=== PATIENT | female | born 1940 | race Caucasian/White ===

== ENCOUNTER 2019-03-19 14:10 | Emergency (ER) | payer MEDICARE, OTHER ==
[~2019-03-19] VITALS: Ht 157.5 cm; Wt 59.0 kg
[2019-03-19 16:07] LABS: ABSOLUTE BASOPHILS 0.1 thou/uL (0.0-0.2); ABSOLUTE LYMPHOCYTES 1.1 thou/uL (0.8-5.3); ABSOLUTE MONOCYTES 0.9 thou/uL (0.0-1.2); ABSOLUTE NEUTROPHILS 5.7 thou/uL (1.6-8.1); BASOPHILS 0.7 %; EOSINOPHILS 0.1 %; HEMATOCRIT 36.7 % (37.0-47.0); HEMOGLOBIN 12.2 gm/dL (12.0-15.0); LYMPHOCYTES 14.7 %; MCH 33.2 pg (26.0-34.0); MCHC 33.3 g/dL (28.0-37.0); MCV 99.6 fL (80.0-100.0); MONOCYTES 11.5 %; MPV 8.9 fl. (7.2-11.1); NUCLEATED RBCS 0 /100WBC; PLATELET COUNT* 141 thou/uL (150-400); RBC 3.68 mil/uL (4.20-5.00); RDW-CV 14.2 % (10.5-14.5); WBC 7.8 thou/uL (4.0-11.0)
[2019-03-19 16:12] LABS: ANION GAP 10 mmol/L (7-16); BUN 23 mg/dL (7-18); CALCIUM 9.4 mg/dL (8.5-10.1); CHLORIDE 99 mmol/L (98-107); CO2 28 mmol/L (21-32); CREATININE 1.3 mg/dL (0.6-1.3); GLUCOSE 115 mg/dL (70-99); POTASSIUM 4.8 mmol/L (3.5-5.1); SODIUM 137 mmol/L (136-145)
[2019-03-19 16:14] LABS: PROTIME 10.1 Seconds (9.20-11.50)
[2019-03-19 16:26] LABS: ALBUMIN 3.6 g/dL (3.4-5.0); ALKALINE PHOSPHATASE 50 U/L (46-116); LIPASE 69 U/L (73-393); NT-PRO BRAIN NAT PEPTIDE 660 pg/mL (<300); SGOT 25 U/L (15-37); SGPT 52 U/L (30-65); TOTAL BILIRUBIN 0.7 mg/dL (<0.1-1.0); TOTAL PROTEIN 7.7 g/dL (6.4-8.2); TROPONIN-I LEVEL <0.06 ng/mL (<0.06)
[2019-03-19] MEDS ORDERED: CARAFATE 1 GM TA1 GM PO (17:37)
[2019-03-19 17:58] VITALS: BP 134/83
--- NOTE | 2019-03-21 12:24 | EKG ---
[place] [address] ELECTROCARDIOGRAM REPORT Name: ABIMAEL SCHMIDT [facility] [id number] Admission: 03/19/19 Attend Phys: Discharge: 03/19/19 Date of : 44 Report #: [id number] THIS REPORT FOR: //name// [facility] ED Test Date: 2019-03-19 Test Time: 14:16:12 Pat Name: ABIMAEL SCHMIDT Department: Room: Gender: F [employer]: [facility] : 1940 Requested By: Kassie Donohue Order Number: [id number] MD: Darien Duran Measurements Intervals [place] Rate: 82 P: 39 VA: 119 QRS: 6 QRSD: 98 T: 51 QT: 374 QTc: 437 Interpretive Statements Sinus rhythm Borderline short VA interval Anterior infarct, old No previous ECG available for comparison Electronically Signed On 03-21-2019 12:24:47 CDT by Darien Duran [email or web address] <ELECTRONICALLY SIGNED> By: Darien Duran MD, [facility] 03/21/19 1224 1416 1416 Darien Duran MD, FACC /EPI
== END 2019-03-19 18:00 | disposition home or self-care (01) ==
LOC: M.ERS 14:10
PROVIDERS: Personal Emergency Response Attendant
DX: K80.20 Calculus of gallbladder without cholecystitis without obstruction (principal); K80.50 Calculus of bile duct without cholangitis or cholecystitis without obstruction; Z90.710 Acquired absence of both cervix and uterus

== ENCOUNTER → 2019-04-25 | Day surgery (SDC) | payer MEDICARE, OTHER ==
[~2019-04-25] MED LIST: CARAFATE 1 GM TA1 GM PO; CRESTOR20 MG PO; DIPHENHIST50 MG PO; LOPRESSOR100 M1 PO; NORCO 5-325 TA1 EAC1 PO; SYNTHROID112 MC1 PO; VITAMIN B122500 MCG PO; VITAMIN D31000 UNIT PO; ZETIA10 MG PO
--- NOTE | ~2019-04-25 | OP ---
[address] [address] OPERATIVE REPORT Name: ABIMAEL SCHMIDT Room: [facility]#: [id number] Admission: 04/25/19 Attend Phys: Sloane Machado MD Discharge: Date of : 44 Report #: [id number] THIS REPORT FOR: //name// CC: Sloane Godinez DATE OF SERVICE: 04/25/2019 PREOPERATIVE DIAGNOSIS: Symptomatic biliary colic. POSTOPERATIVE DIAGNOSIS: Chronic cholecystitis. OPERATIVE PROCEDURE: Laparoscopic cholecystectomy. ANESTHESIA: General endotracheal with 0.5% Marcaine infiltrated into the incision. DESCRIPTION OF PROCEDURE: The patient was placed under general endotracheal anesthesia and the abdomen was carefully prepped and draped in a sterile fashion. A timeout was taken. IV Ancef was administered. I began by infiltrating the infraumbilical crease with 0.5% Marcaine and a transverse incision with a #15 scalpel blade was created. Its edges lifted up with 2 Adson forceps and cautery and Army-Seaford's to dissect down to the anterior abdominal wall. The abdominal wall was lifted up with 2 Kochers and cleared with cautery and transected transversely with a #15 scalpel blade. Blunt dissection with a mosquito into the peritoneal cavity was accomplished without injury to underlying abdominal viscera. A 0 PDS was looped through the incision site and a size 12 applied medical Sheldon trocar was passed into the abdominal cavity and secured at the skin. After balloon insufflation pneumoperitoneum was created with carbon dioxide to 5 liters, 75 mm 30-degree scope was inserted into the upper abdomen. The gallbladder was identified and under direct visualization, infiltration in the subcostal margin at the epigastric, midclavicular and anterior axillary line followed by 3 small incisions with a #15 scalpel blade and tunneling and penetration with 3 bladeless 5 mm trocars, which were secured at the skin. The patient's gallbladder was grasped with 2 grasping forceps and tended towards the diaphragm using a [place] dissector, carefully dissected at the triangle of Calot was dissected out both the cystic artery and cystic duct, placed 3 Hemoclips were both across, both structures and divided with laparoscopic scissors leaving 2 on the patient and 1 on the gallbladder. Handheld cautery then was used to dissect the gallbladder off the undersurface of the liver. I changed the position of the camera. At that point, from the umbilical to the epigastric port and through the umbilical port, an Endopouch was fed into the abdomen opened the gallbladder was placed in the pouch. The pouch was closed and pulled up into the umbilical trocar. The trocar was removed with straight had the gallbladder and pouch was removed without incident. The Sheldon was replaced. Pneumoperitoneum [place] [address] OPERATIVE REPORT Name: ANNMARIE SCHMIDTYANY Mccabe Room: [facility] Jefe#: [id number] Admission: 04/25/19 Attend Phys: Sloane Machado MD Discharge: Date of : 44 Report #: [id number] right upper quadrant was inspected, irrigated and aspirated and the cartagena remained dry and the clips in place. I then deflated pneumoperitoneum and took all instruments and trocars. I then placed the patient in a neutral position. The 0 PDS at the umbilical site was tied and infiltrated with 0.5% Marcaine and then all four incisions were closed with buried 4-0 PDS sutures and sealed with Dermabond. ESTIMATED BLOOD LOSS: 5 mL. Sponge and instrument count correct. The patient was extubated, returned to recovery in stable condition. By: 1329 1451Sloane Machado MD /nt
--- NOTE | 2019-04-25 07:49 | H ---
[address] [address] HISTORY AND PHYSICAL Name: ABIMAEL SCHMIDT Room: [facility].#: [id number] Admission: Attend Phys: Sloane Machado MD Discharge: Date of : 44 Report #: [id number] THIS REPORT FOR: //name// CC: Sloane Godinez DATE OF SERVICE: 04/25/2019 SUBJECTIVE: The patient to be treated on 04/25/2019. ADMITTING DIAGNOSIS: Symptomatic cholelithiasis. HISTORY OF PRESENT ILLNESS: The patient is a 78-year-old female who presents with symptomatic upper abdominal pain. She was worked up at [facility] and found to have cholelithiasis and so she was referred for surgical management. PAST MEDICAL HISTORY: Includes hypertension, hypercholesterolemia, and hypothyroidism. PAST SURGICAL HISTORY: She has had cataract surgery and hysterectomy in the past. MEDICATIONS: Include vitamin D, metoprolol, levothyroxine, rosuvastatin, and Benadryl. ALLERGIES: She has reported no known allergies. SOCIAL HISTORY: She is a current every-day smoker that smokes 3 cigarettes a day and drinks modest amount of alcohol. No illegal drugs. REVIEW OF SYSTEMS: Otherwise, unremarkable. PHYSICAL EXAMINATION: GENERAL: Well-developed, well-nourished female sitting up in no acute distress. HEAD, EARS, EYES, NOSE, AND THROAT: Unremarkable. NECK: Supple. Normal size with no mass or lesions. LUNGS: Clear. CARDIAC: Regular rate and rhythm without murmur. ABDOMEN: Healed lower midline abdominal scar. BREAST: Unremarkable. NEUROLOGIC: She is oriented to person and time. IMPRESSION AND PLAN: Symptomatic cholelithiasis. I have outlined laparoscopic cholecystectomy with its associated risks and benefits, including bowel injury, [place] [address] HISTORY AND PHYSICAL Name: ABIMAEL SCHMIDT Room: [facility].#: [id number] Admission: Attend Phys: Sloane Machado MD Discharge: Date of : 44 Report #: [id number] bile duct injury, and hernia. She understands the risks and benefits, and wishes to proceed with surgical treatment. <ELECTRONICALLY SIGNED> By: Sloane Machado MD 04/25/19 0749 1250 1305Sloane Machado MD /nt
[2019-04-25 10:26] LABS: HEMATOCRIT 40.7 % (37.0-47.0); HEMOGLOBIN 13.5 gm/dL (12.0-15.0); MCH 33.4 pg (26.0-34.0); MCHC 33.2 g/dL (28.0-37.0); MCV 100.6 fL (80.0-100.0); MPV 8.5 fl. (7.2-11.1); RBC 4.04 mil/uL (4.20-5.00); RDW-CV 15.5 % (10.5-14.5); WBC 4.9 thou/uL (4.0-11.0)
[2019-04-25 10:32] LABS: CALCIUM 9.5 mg/dL (8.5-10.1); CREATININE 1.3 mg/dL (0.6-1.3); POTASSIUM 4.7 mmol/L (3.5-5.1)
[2019-04-25 10:36] LABS: ALBUMIN 3.9 g/dL (3.4-5.0); TOTAL BILIRUBIN 0.4 mg/dL (<0.1-1.0); TOTAL PROTEIN 7.8 g/dL (6.4-8.2)
--- NOTE | 2019-04-27 11:07 | PATH ---
[address] [address] PATHOLOGY RPT PROCEDURE Name: ABIMAEL FLEMING [facility]#: [id number] Admission: 04/25/19 Date of : 44 Discharge: Report #: [id number] Path Case #: [id number] [facility] Accession Number: [id number] . 01 Material submitted: . gallbladder - GALLBLADDER . 01 Clinical history: . Gallstones . 02 Diagnosis: Gallbladder: - Chronic cholecystitis and cholelithiasis. (MACEY:elsa; 04/26/2019) [facility] 04/26/2019 1650 Local . 02 Electronically signed: . Yeison Cline MD, Pathologist NPI- [id number] . 01 Gross description: . The specimen is received in formalin, labeled "Abimael Fleming, gallbladder", is intact, distended gallbladder measuring 7.5 cm in length and 2.5 cm in maximum diameter with a glistening and mahoney-pink serosa. The cystic duct is patent. The gallbladder lumen contains scant viscous yellow-brown bile and multiple multifaceted dark brown-yellow calculi and its fragments measuring 4.0 x 3.8 x 1.2 cm in aggregate. The mucosa is diffusely effaced giving a trabeculated appearance and with no cholesterolosis. The wall is 0.1 cm in average thickness. Representatively submitted in A1. ([facility]; 04/25/2019 [facility] 04/26/2019 1650 Local . 02 Pathologist provided ICD-10: K80.10 . 02 CPT . 448491 Specimen Comment: A courtesy copy of this report has been sent to Specimen Comment: [phone], . Specimen Comment: Report sent to / DR PEREIRA Performed at: 01 [facility] [address] [place] [address] [address], [place], [place] [id number] MD Mitchell Novoa MD Phone: [phone] Performed at: [address] [address] [address] [place], [place] [id number] MD Yeison Cline MD Phone: [phone]
== END | disposition home or self-care (01) ==
LOC: M.SUR 09:34
PROVIDERS: Surgery
DX: K80.44 Calculus of bile duct with chronic cholecystitis without obstruction (principal); K21.9 Gastro-esophageal reflux disease without esophagitis; I10 Essential (primary) hypertension; E78.00 Pure hypercholesterolemia, unspecified; E03.9 Hypothyroidism, unspecified; F17.210 Nicotine dependence, cigarettes, uncomplicated; Z98.890 Other specified postprocedural states; Z79.899 Other long term (current) drug therapy

== ENCOUNTER → 2019-07-08 | Outpatient (CLI) | payer OTHER | LOC: M.CT 09:45 | DX: Z13.6 Encounter for screening for cardiovascular disorders (principal); E78.00 Pure hypercholesterolemia, unspecified; I25.10 Atherosclerotic heart disease of native coronary artery without angina pectoris ==

== ENCOUNTER → 2019-08-23 | Outpatient (CLI) | payer MEDICARE, OTHER ==
--- NOTE | 2019-08-23 14:22 | 2DMMODE ---
[place] [address] 2 D/M-MODE ECHOCARDIOGRAM Name: ABIMAEL SCHMIDT Room: [facility]#: [id number] Admission: 08/23/19 Attend Phys: Timothy Mcdonough, Discharge: Date of : 44 Date of Service: 08/23/19 1421 Report #: [id number] THIS REPORT FOR: //name// APPROVED REPORT Study performed: 08/23/2019 12:59:45 EXAM: Comprehensive 2D, Doppler, and color-flow Echocardiogram Patient Location: Out-Patient BSA: 1.59 HR: 85 bpm BP: 120/80 mmHg Other Information Study Quality: Good Indications CAD 2D Dimensions IVSd: 9.98 (7-11mm) LVOT Diam: 19.37 (18-24mm) LVDd: 36.66 mm PWd: 10.67 (7-11mm) Ascending Ao: 23.82 (22-36mm) LVDs: 24.83 (25-40mm) Aortic Root: 26.34 mm Volumes Left Atrial Volume (Systole) LA ESV Index: 11.50 mL/m2 Aortic Valve AoV Peak Castillo.: 1.59 m/s AO Peak Gr.: 10.10 mmHg LVOT Max P.27 mmHg AO Mean Gr.: 5.58 mmHg LVOT Mean P.37 mmHg LVOT Max V: 0.90 m/s AO V2 VTI: 28.28 cm LVOT Mean V: 0.53 m/s SANDI (VTI): 1.62 cm2 LVOT V1 VTI: 15.54 cm AI Morrison: 3.09 m/s2 AI PHT: 458.33 ms Mitral Valve E/A Ratio: 0.54 MV Decel. Time: 331.51 ms MV E Max Castillo.: 0.47 m/[place] [address] 2 D/M-MODE ECHOCARDIOGRAM Name: ABIMAEL SCHMIDT Room: [facility]#: [id number] Admission: 08/23/19 Attend Phys: Timothy Mcdonough, Discharge: Date of : 44 Date of Service: 08/23/19 1421 Report #: [id number] MV PHT: 96.14 ms MVA (PHT): 2.29 cm2 TDI E/Lateral E': 5.22 E/Medial E': 5.88 Medial E' Castillo.: 0.08 m/s Lateral E' Castillo.: 0.09 m/s Pulmonary Valve PV Peak Castillo.: 0.94 m/s PV Peak Gr.: 3.57 mmHg Left Ventricle The left ventricle is normal size. There is left ventricular systolic dyssynergy noted consistent with underlying bundle branch block. Global LV systolic function is preserved. There is normal left ventricular wall thickness. Left ventricular systolic function is normal. LVEF is 55-60%. Grade I - abnormal relaxation pattern. Right Ventricle The right ventricle is normal size. The right ventricular systolic function is normal. Atria The left atrium size is normal. The right atrium size is normal. Aortic Valve Aortic valve is mildly calcified. Mild aortic regurgitation. There is no aortic valvular stenosis. Mitral Valve The mitral valve is normal in structure. Mild mitral regurgitation. No evidence of mitral valve stenosis. Tricuspid Valve The tricuspid valve is normal in structure. There is no tricuspid valve regurgitation noted. Pulmonic Valve The pulmonary valve is normal in structure. There is no pulmonic valvular regurgitation. Great Vessels The aortic root is normal in size. IVC is normal in size and collapses >50% [place] [address] 2 D/M-MODE ECHOCARDIOGRAM Name: ABIMAEL SCHMIDT Room: [facility]#: [id number] Admission: 08/23/19 Attend Phys: Timothy Mcdonough, Discharge: Date of : 44 Date of Service: 08/23/19 1421 Report #: [id number] Pericardium There is no pericardial effusion. <Conclusion> The left ventricle is normal size. There is normal left ventricular wall thickness. Left ventricular systolic function is normal. LVEF is 55-60%. Grade I - abnormal relaxation pattern. Aortic valve is mildly calcified. Mild aortic regurgitation. Mild mitral regurgitation. There is no tricuspid valve regurgitation noted. IVC is normal in size and collapses >50% with inspiration. <ELECTRONICALLY SIGNED> By: Timothy Mcdonough MD, FACC 08/23/19 1421 1421 1421 Timothy Mcdonough MD, FACC /INF
== END ==
LOC: M.CRD 12:56
DX: I25.10 Atherosclerotic heart disease of native coronary artery without angina pectoris (principal); E78.00 Pure hypercholesterolemia, unspecified; I10 Essential (primary) hypertension; E03.9 Hypothyroidism, unspecified; Z79.899 Other long term (current) drug therapy

== ENCOUNTER → 2021-03-27 | Outpatient (CLI) | payer MEDICARE, OTHER | LOC: M.RAD 13:29 | PROVIDERS: ATTEND Internal Medicine | DX: Z12.31 Encounter for screening mammogram for malignant neoplasm of breast (principal); N64.89 Other specified disorders of breast ==